=== PATIENT | male | born 1975 | race Two or more races ===

== ENCOUNTER → 2017-01-05 | Outpatient (REF) | payer OTHER ==
[~2017-01-05] MED LIST: AMLO5TAB2 PO; AUGM875T27 PO; CYCL10TA PO; FENO160T10 PO; HYCE0.1S PO; HYDR12.55 PO; LOSA50TA20 PO; SIMV40TA2 PO
== END ==
LOC: M SFHCLERA 20:39
PROVIDERS: ATTEND Physician Assistant
DX: R19.7 Diarrhea, unspecified (principal)

== ENCOUNTER → 2018-10-11 | Outpatient (REF) | payer OTHER ==
[~2018-10-11] MED LIST changes: -AMLO5TAB2 PO; +AMLO5TAB6 PO; -AUGM875T27 PO; +AUGM875T28 PO; -LOSA50TA20 PO; +LOSA50TA88 PO
== END ==
LOC: M SFHCLERA 20:40
PROVIDERS: ATTEND Physician Assistant
DX: R50.9 Fever, unspecified (principal)

== ENCOUNTER → 2019-02-22 | Outpatient (CLI) | payer BC, OTHER ==
--- NOTE | 2019-02-24 18:18 | SLEEPCENT ---
DATE OF PROCEDURE: 02/22/2019 ORDERED BY: Maria Isabel Garcia Nocturnal polysomnography was performed for retitration of pressure therapy in this patient with obstructive sleep apnea syndrome. For testing a ResMed air fit F20 full face mask used. 16 cm of water pressure was initially applied to the circuit the lights were extinguished 8 hours and 32 minutes of data were reviewed. There are 438 minutes of sleep identified. Sleep latency was short at 4.5 minutes. REM latency was normal at 107 minutes. Sleep architecture was good with five REM cycles noted. Overall sleep efficiency 86.4%. The patient's electrocardiogram showed a sinus rhythm. An average heart rate of 62 beats per minute. EEG showed normal waveforms for awake and sleep. Respiratory events were fully palliated with C-PAP at a pressure of +17 and remaining measures of sleep physiology were normal. IMPRESSION: Obstructive sleep apnea syndrome (G47.33) RECOMMENDATIONS: Nightly use of pressure therapy 17 cm of water.
== END ==
LOC: M SLEEP 19:58
PROVIDERS: ATTEND Nurse Practitioner Family
DX: G47.33 Obstructive sleep apnea (adult) (pediatric) (principal)

== ENCOUNTER → 2019-08-30 | Outpatient (CLI) | payer BC, OTHER ==
[~2019-08-30] MED LIST changes: -SIMV40TA2 PO; +SIMV40TA20 PO
--- NOTE | 2019-08-31 07:31 | REP ---
LUMBAR SPINE SERIES: Five views. HISTORY: Low back pain for several weeks. No comparison study. FINDINGS: Lumbar vertebral body heights are preserved. Alignment is normal. There is no evidence of spondylolysis or spondylolisthesis. There is degenerative discogenic spurring at L1-2 and T12-L1. Minimal spurring is seen at L4-5. Sacrum and SI joints are intact. Psoas margins are symmetric. There are several calcifications projecting in the upper abdomen to the right of midline on the frontal view suggesting biliary tract calculi. IMPRESSION: Degenerative disc changes as noted above. Possible gallstones or biliary tract calculi right upper quadrant. Electronically Signed by Tyrese Burdick MD 08/31/2019 09:11 A
== END ==
LOC: M LRY 17:09
PROVIDERS: ATTEND Nurse Practitioner Family
DX: M54.5 Low back pain (principal)